=== PATIENT | male | born 1980 ===

== ENCOUNTER 2017-09-14 09:01 | Day surgery (SDC) | payer OTHER ==
[2017-09-14] VITALS (9 sets, daily range): BP systolic 101–123; BP diastolic 68–83
[~2017-09-14] VITALS: Ht 167.6 cm; Wt 77.1 kg
--- NOTE | 2017-09-14 06:16 | Anethesia Preoperative Eval ---
Anesthesia Pre-op PMH/ROS General Date of Evaluation: September 14, 2017 Time of Evaluation: 06:16 Anesthesiologist: wilver ASA Score: ASA 3 Mallampati Score Class I : Soft palate, uvula, fauces, pillars visible Class II: Soft palate, uvula, fauces visible Class III: Soft palate, base of uvula visible Class IV: Only hard plate visible Mallampati Classification: Class II Surgeon: ezequiel Diagnosis: rectal bleeding Surgical Procedure: colonoscopy Anesthesia History: none Social History: smoking - nonsmoker Family History: no anesthesia problems Allergies: Coded Allergies: No Known Allergies (Unverified , 09/14/17) Medications: see eMAR Past Medical History Cardiovascular: Denies: HTN, CAD, IL, valve dz, arrhythmia, other Pulmonary: Reports: SHARON Gastrointestinal/Genitourinary: Reports: other - rectal bleeding Neurologic/Psychiatric: Reports: other - concussion, brachial plexus injury Endocrine: Denies: DM, hypothyroidism, steroids, other HEENT: Denies: cataract (L), cataract (R), glaucoma, HYDABURG (L), HYDABURG (R), other Hematology/Immune: Denies: anemia, DVT, bleeding disorder, other Musculoskeletal/Integumentary: Denies: OA, RA, DJD, DDD, edema, other Anesthesia Pre-op Phys. Exam Physician Exam Last Vital Signs Date Time Temp Pulse Resp B/P (MAP) Pulse Ox O2 Delivery O2 Flow Rate FiO2 09/14/17 09:47 98.6 75 18 123/83 99 Room Air 98.6 Constitutional: NAD Neurologic: CN 2-12 intact Cardiovascular: RRR Respiratory: CTA Gastrointestinal: S/NT/ND Airway Exam Mallampati Score: Class II MO: full Neck: supple TMD: 2fb ROM: full Teeth: intact Anesthesia Pre-op A/P Risk Assessment & Plan Assessment: asa3 Plan: mac Status Change Before Surgery: No Pre-Antibiotics Drug: Sonali Barth MD September 14, 2017 06:16
[2017-09-14] MEDS ORDERED: LR 1000ml ONE (09:02)
[2017-09-14] MEDS ORDERED: Propofol 200mg/20ml IV ONE (09:02)
[2017-09-14] MEDS ORDERED: Lidocaine 1% MPF 10mg/ml 5ml ONE (09:02)
[2017-09-14] MEDS ORDERED: METHADONE PO (09:45)
--- NOTE | 2017-09-14 10:48 | Short Stay Surgery H&P ---
History of Present Illness History of Present Illness Chief Complaint Rectal bleeding and abdominal pains. HPI Linus Sanchez is a 37 year old male who was admitted on for Rectal Bleeding Patient History Allergies: Coded Allergies: No Known Allergies (Unverified , 09/14/17) Past Surgeries: (1) Brachial plexus injury, right Medication History Scheduled [Methadone], 10-325 MG PO TID/QID, (Reported) Review of Systems Cardiovascular: Reports: no symptoms Respiratory: Reports: no symptoms Skeletal: Reports: trauma Gastrointestinal: Reports: gastro esophageal reflux disease Genitourinary: Reports: no symptoms Neurologic: Reports: no symptoms Endocrine: Reports: no symptoms Hematologic: Reports: no symptoms Physical Exam Vital Signs Last Vital Signs Date Time Temp Pulse Resp B/P (MAP) Pulse Ox O2 Delivery O2 Flow Rate FiO2 09/14/17 09:47 98.6 75 18 123/83 99 Room Air 98.6 Skin: normal HENT: normal Heart: normal Lungs: normal Abdomen: abnormal Extremities: normal Genitourinary: normal Plan Plan of Care Total colonoscopy Preop Interventions None. Summary of Findings See the reports Attestation Are the patient's medical conditions optimized for surgery? Attestation Response: yes Justino Saxena MD September 14, 2017 10:48
--- NOTE | 2017-09-14 10:50 | Pre-Procedure Note/Attestation ---
Pre-Procedure Note/Attestation Complete Prior to Procedure Planned Procedure: left Procedure Narrative: Endoscopic examination of the total colon via colonoscopy Indications for Procedure Pre-Operative Diagnosis: R/O hemorrhoids/ colon polyp/colitis Attestation I attest that I discussed the nature of the procedure; its benefits; risks and complications; and alternatives (and the risks and benefits of such alternatives ), prior to the procedure, with the patient (or the patient's legal sales representative cash registers). I attest that, if there was a reasonable possibility of needing a blood transfusion, the patient (or the patient's legal sales representative cash registers) was given the [facility] standardized written summary, pursuant to the [place] Blood Safety Act ([place] Health and Safety Code # 1645, as amended). I attest that I re-evaluated the patient just prior to the surgery and that there has been no change in the patient's H&P, except as documented below: Justino Saxena MD September 14, 2017 10:49
[2017-09-14] MEDS ORDERED: LR 1000ml 1,000 ML IVLG SCH (11:03)
[2017-09-14] MEDS ORDERED: Atropine Inj 1mg/10ml Syr IV PRN (11:15)
[2017-09-14] MEDS ORDERED: DiphenhydrAMINE 50mg/ml Inj IVP PRN (11:15)
[2017-09-14] MEDS ORDERED: fentaNYL 100 mcg/2 mL IV PRN (11:15)
[2017-09-14] MEDS ORDERED: Midazolam 2mg/2ml Inj IVP PRN (11:15)
--- NOTE | 2017-09-14 11:34 | Discharge Instructions ---
Discharge Instructions Discharge Instructions Follow up with: See the doctor after 2 weeks in the office. For Congestive Heart Failure Reminder Report to your physician any weight gain of 5 pounds or more in one week. Justino Saxena MD September 14, 2017 11:34
--- NOTE | 2017-09-14 11:34 | Endoscopy Procedure Note ---
Endoscopy Procedure Note General Indication for Procedure: Rectal bleeding Procedures Performed: colonoscopy - Minimal internal hemorrhoids otherwise normal total colonoscopy. Specimen: none Pt Tolerated Procedure Well: Yes Estimated Blood Loss: none Anesthesia Anesthesiologist: Dr. Rajan Anesthesia: moderate sedation Medications Medication Given: see anesthesia record Inserted Devices Implant(s) used?: No Quality Quality of Bowel Preparation: Good Was there any complications?: No GI Core Measures 50 yrs or older w/o bx or poly: No 10yrs. F/U not recommended: No If not recommended, why?: Med reason:<3 yrs.: System Reason:<3 yrs.: Justino Saxena MD September 14, 2017 11:34
--- NOTE | 2017-09-14 12:47 | Immediate Post-Op Evaluation ---
Immediate Post-Op Evalulation Immediate Post-Op Evalulation Procedure: colonoscopy Date of Evaluation: September 14, 2017 Time of Evaluation: 11:52 IV Fluids: 300ml lr Blood Products: none Estimated Blood Loss: negligible Blood Pressure Systolic: 101 Blood Pressure Diastolic: 78 Pulse Rate: 73 Respiratory Rate: 18 O2 Sat by Pulse Oximetry: 100 Temperature (Fahrenheit): 98.9 Pain Score (1-10): 0 Nausea: No Vomiting: No Complications none Patient Status: awake, reacts, patent Hydration Status: adequate Drug: Sonali Barth MD September 14, 2017 12:47
--- NOTE | 2017-09-14 12:49 | 48 Hour Post Anesthesia Eval ---
Post Anesthesia Evaluation Procedure: colonoscopy Date of Evaluation: September 14, 2017 Time of Evaluation: 11:54 Blood Pressure Systolic: 121 0: 79 Pulse Rate: 65 Respiratory Rate: 18 Temperature (Fahrenheit): 98.9 O2 Sat by Pulse Oximetry: 100 Airway: patent Nausea: No Vomiting: No Pain Intensity: 0 Hydration Status: adequate Cardiopulmonary Status: stable Mental Status/LOC: patient returned to baseline Post-Anesthesia Complications: none Follow-up care needed: N/A Sonali Toro MD September 14, 2017 12:49
--- NOTE | 2017-09-14 21:45 | Pre-op HX & Phy Repo 2 SIG ---
DATE OF ADMISSION: 09/14/2017 PREOPERATIVE HISTORY AND PHYSICAL REFERRING PHYSICIAN: Ishaan Cruz M.D. HISTORY OF PRESENT ILLNESS: The applicant is a 37-year-old gentleman, who is being seen prior to undergoing the procedure of colonoscopic examination for which he has been scheduled to receive evaluation of his gastrointestinal condition, mainly presenting with intermittent rectal bleeding that he has suffered subsequent to his work injury. The patient also has some nonspecific pains over the left lower quadrant of the abdomen as well. The patient in the past has had gastroesophageal reflux, which does not seem to be significant at this time. He, however, refers to the fact that he has intermittent rectal bleeding at times, maybe every 2 to 5 months. He has not been adequately worked up for this condition, which seems to have had occurred subsequent to his work injury. The patient reports that subsequent to his bodily injury at work, he has received multiple medications including narcotics, strong analgesics, and nonsteroidal antiinflammatory agents and he has gained approximately 40 pounds. He does complain of constipation and excessive bloating and gas. However, as I mentioned, he has not had any workup for his rectal bleeding. 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 Also, he reports that he was seen by another physician after his work injury who diagnosed for him to have possible gastritis and gastroesophageal reflux. PAST MEDICAL HISTORY: None significant. He denies hypertension, diabetes, etc. SURGERIES: Right brachial plexus surgery related to work accident. HABITS: The applicant denies drinking alcohol or smoking cigarettes. ALLERGIES: None. MEDICATIONS: Prilosec, [place], and methadone. REVIEW OF SYSTEMS: Basically history of present illness, otherwise, none significant. PHYSICAL EXAMINATION: GENERAL: Reveals an alert and well-oriented gentleman, does not seem to be in any acute distress. He looks well developed and nourished. VITAL SIGNS: All stable. HEENT: Normocephalic. Pupils equal in size, reactive to light and accommodation. No jaundice. NECK: Supple. No JVD, thyromegaly, or adenopathy. CHEST: Clear to auscultation and percussion. No rales or rhonchi. HEART: S1 and S2 normal. Regular rhythm. No gallops or murmur. ABDOMEN: Soft, but there are areas of mild tenderness over the lower part of the abdomen, mostly on the left side, but no hepatosplenomegaly or palpable mass noted. EXTREMITIES: Unremarkable. PRELIMINARY PRE-ENDOSCOPIC IMPRESSION: 1. History of rectal bleeding of uncertain etiology, rule out hemorrhoids due to development of constipation, secondary to side effects of narcotics used for the treatment of bodily injury pain. 2. Possibly history of gastroesophageal reflux disease, stable. RECOMMENDATION: The applicant seems to be stable at this time to undergo the procedure of colonoscopic examination. He understands the risks and benefits and will sign the consent. Said Lucille Saxena DR: Amy JOB#: [id number] CC:
--- NOTE | 2017-09-14 23:16 | Operative Note - Dictated ---
DATE OF OPERATION: 09/14/2017 PROCEDURE: Total colonoscopy. SURGEON: Justino Saxena M.D. REFERRING PHYSICIAN: Ishaan Cruz M.D. PREOPERATIVE DIAGNOSES: Rectal bleeding, abdominal pain, and constipation. POSTOPERATIVE DIAGNOSES: Evidence of minimal internal hemorrhoids, most probably the cause of occasional rectal bleeding, otherwise complete normal study up to the base of the cecum as examined. MEDICATION USED: Per Dr. Rajan, anesthesiologist. INSTRUMENT: GIF Olympus videocolonoscope. DESCRIPTION OF PROCEDURE: The patient after arriving at the endoscopy unit, was told about risks and benefits of the procedure, which he accepted and signed informed consent. He was then put on the left lateral decubitus position. After adequate IV sedation, the scope was gently passed through the anal area, which revealed evidence of minimal internal hemorrhoids, which were not friable. A retroflexion maneuver was also applied here confirming the existence of internal hemorrhoids of mild degree. At this time, the scope was passed through normal-looking entire rectum, introduced through rather very redundant left colon, which took significant amount of time to go through. Finally, the scope reached to the splenic flexure, from there into the transverse colon, hepatic flexure, and was guided into the right colon all the way to the base of the cecum. All these areas remained to be completely normal without any evidence of intraluminal pathology. The colon cleanup was adequate and good, and at this point, upon reaching to the base of the cecum within 7 minutes, the scope was gradually pulled out and re-evaluation of the colon did not reveal any other pathologies. The patient tolerated the procedure well and left the endoscopy room in a good condition. Said Lucille Saxena DR: RIAN JOB#: [id number] CC:
== END 2017-09-14 12:45 | disposition home or self-care (01) ==
LOC: GAS 09:01
DX: K64.8 Other hemorrhoids (principal); G47.33 Obstructive sleep apnea (adult) (pediatric)
CPT/HCPCS: 45378; J2704; J7120; 94003; 94150